=== PATIENT | male | born 1985 | race Two or more races ===

== ENCOUNTER 2021-05-21 10:43 | Emergency (ER) | payer SELFPAY ==
[~2021-05-21] VITALS: Ht 162.6 cm; Wt 85.8 kg
[2021-05-21] MEDS ORDERED: IBUPROFEN 200 MG TABLET. PO ONE (11:30)
[2021-05-21] MEDS ORDERED: ACETAMINOPHEN 325 MG TABLET. PO ONE (11:30)
--- NOTE | 2021-05-21 11:46 | RAD ---
INDICATION: Reason: Cough, congestion, fever / Spl. Instructions: / History: COMPARISON: None. FINDINGS: Single view of chest obtained. Hypoexpanded examination of the lungs. Prominent cardiac silhouette. Be exaggerated by portable technique. Patchy opacities within the bilateral lungs. IMPRESSION: * Patchy opacities in the bilateral lungs. Could be infectious in nature from bilateral pneumonia co rrelate with symptoms. Both viral and bacterial etiology could have this appearance. Follow-up could be obtained to ensure this appropriately resolves. Electronically signed by: Bc Bang MD (05/21/2021 11:44 AM) [id number]
--- NOTE | 2021-05-21 11:58 | PHYS DOC ---
Past Medical History Past Surgical History: No Surgical History Smoking Status: Never Smoker Alcohol Use: None General Adult EDM: Chief Complaint: SHORTNESS OF BREATH HPI: HPI: Patient is a 36-year-old male presents to the emergency department complaining of chest congestion and cough for the past 4 days. Patient reports this is a dry cough without production of sputum. Complains of mild shortness of breath during coughing spells however denies shortness of breath otherwise. Patient reports fevers and chills at home however denies taking his temperature at home. Denies chest pain or discomfort, denies receiving the COVID-19 vaccine. Denies other physical complaints or physical concerns. Review of Systems: Review of Systems: 14 body systems of review of systems have been reviewed. See HPI for pertinent positives and negative responses, otherwise all other systems are negative, nonpertinent or noncontributory. Constitutional: Negative except as outlined in HPI above. Skin: Negative except as outlined in HPI above. Eyes: Negative except as outlined in HPI above. HENT: Negative except as outlined in HPI above. Respiratory: Negative except as outlined in HPI above. Cardiovascular: Negative except as outlined in HPI above. GI: Negative except as outlined in HPI above. : Negative except as outlined in HPI above. Musculoskeletal: Negative except as outlined in HPI above. Integument: Negative except as outlined in HPI above. Neurologic: Negative except as outlined in HPI above. Endocrine: Negative except as outlined in HPI above. Lymphatic: Negative except as outlined in HPI above. Psychiatric: Negative except as outlined in HPI above. Heart Score: C/O Chest Pain: No Risk Factors: Risk Factors: DM, Current or recent (<one month) smoker, HTN, HLP, family history of CAD, obesity. Risk Scores: Score 0 - 3: 2.5% MACE over next 6 weeks - Discharge Home Score 4 - 6: 20.3% MACE over next 6 weeks - Admit for Clinical Observation Score 7 - 10: 72.7% MACE over next 6 weeks - Early Invasive Strategies Current Medications: Current Medications Medications (Trade) Dose Ordered Sig/April Start Time Stop Time Status Last Admin Dose Admin Acetaminophen (Tylenol) 650 mg 1X ONCE 05/21/21 11:30 05/21/21 11:31 DC 05/21/21 11:45 650 MG Ibuprofen (Motrin) 600 mg 1X ONCE 05/21/21 11:30 05/21/21 11:31 DC 05/21/21 11:30 600 MG Allergies: Allergies: Allergies Coded Allergies Type Severity Reaction Last Updated Verified No Known Drug Allergies 05/21/21 No Physical Exam: PE: Constitutional: Well developed, well nourished, no acute distress, non-toxic appearance. 36-year-old male in no apparent distress. HENT: Normocephalic, atraumatic. Oropharynx pink, moist, no deep tissue infectious process appreciated, no drooling, no trismus, no lymphadenopathy of the head or neck appreciated, bilateral TMs intact clear within normal limits. Eyes: Conjunctiva normal, no discharge. Neck: Normal range of motion, no stridor. No nuchal rigidity, no meningismus signs. Cardiovascular: No cyanosis appreciated, distal cap refill less than 2 seconds. Lungs & Thorax: Patient is in no respiratory distress, no audible adventitious lung sounds appreciated. No adventitious lung sounds appreciated per auscultation all lung garcia. Abdomen: Nontender, no abnormalities noted. Skin: Warm, dry, no erythema, no rash. Back: No tenderness, no deformities. Extremities: No tenderness, no cyanosis, no clubbing, ROM intact, no edema. Neurologic: Alert and oriented X 3, normal motor function, normal sensory function, no focal deficits noted. Psychologic: Affect normal, judgement normal, mood normal. Current Patient Data: Vital Signs: Vital Signs Date Time Temp Pulse Resp B/P (MAP) Pulse Ox O2 Delivery O2 Flow Rate FiO2 05/21/21 10:58 98.6 88 20 143/96 (112) 97 Room Air 98.6 EKG: EKG: [] Radiology/Procedures: Radiology/Procedures: PATIENT: ERENDIRA FREEDCOUNT: [id number] : 1985 LOCATION: ER AGE: 36 SEX: M EXAM STATUS: REG ER ORD. PHYSICIAN: BERTHA PERALTA APRN REASON: Cough, congestion, fever PROCEDURE: CHEST AP ONLY INDICATION: Reason: Cough, congestion, fever / Spl. Instructions: / History: COMPARISON: None. FINDINGS: Single view of chest obtained. Hypoexpanded examination of the lungs. Prominent cardiac silhouette. Be exaggerated by portable technique. Patchy opacities within the bilateral lungs. IMPRESSION: * Patchy opacities in the bilateral lungs. Could be infectious in nature from bilateral pneumonia correlate with symptoms. Both viral and bacterial etiology could have this appearance. Follow-up could be obtained to ensure this appropriately resolves. Electronically signed by: Magalys Metz MD (05/21/2021 11:44 AM) DESKTOP- [id number] DICTATED and SIGNED BY: MAGALYS METZ MD DATE: 05/21/21 [id number] Course & Med Decision Making: Course & Med Decision Making Pertinent Labs and Imaging studies reviewed. (See chart for details) 36-year-old male, vital signs reviewed, presents emergency department concerning cough and congestion for the past 4 days with reported fever at home. Patient is afebrile here in the emergency department today, physical examination unremarkable however with reported history will order chest x-ray, Covid testing, rapid flu testing, CBC, CMP. Patient's rapid Covid test positive, chest x-ray indicative of atypical Covid pneumonia, Rapid flu testing pending. Rapid flu negative. Discussed findings with patient, will cover atypical pneumonia with community-acquired pneumonia outpatient treatment prescriptions for azithromycin, doxycycline, patient is not hypoxic, no respiratory distress, vital signs within normal limits and is hemodynamically stable. Discussed COVID-19 virus quarantine, will attach information to discharge instructions, patient is amenable to and gave verbal understanding of discharge instructions. Discussed with the patient all findings and diagnostic testing as well as the need to follow-up with their primary care provider for further evaluation and treatment or return to the ED if any new or worsening symptoms. Strict return precautions were also discussed at length, the patient voiced understanding and agreement with the discharge planning. The patient was nontoxic in appearance, in no apparent distress, and hemodynamically stable at the time of disposition. Dragon Disclaimer: Highlighter Disclaimer: This electronic medical record was generated, in whole or in part, using a voice recognition dictation system. Departure Departure Impression: Primary Impression: COVID-19 virus infection Additional Impressions: Atypical pneumonia Community acquired pneumonia Qualified Codes: J18.9 - Pneumonia, unspecified organism Disposition: HOME / SELF CARE / HOMELESS Condition: GOOD Referrals: NO PCP (PCP) Patient Instructions: Pneumonia, Adult Additional Instructions: You were seen today in the emergency department for chest congestion and cough. Your chest x-ray and lab work indicate that you have been infected with the COVID-19 virus and have a COVID-19 pneumonia. I am starting you on an antibiotic to cover any atypical pneumonia component. Please take as directed until completed. I have attached COVID-19 virus instructions to this document please review. Please continue to wear a mask to help prevent the spread of this virus. You may take [id number] Tylenol and or Motrin for fever along with aches and pains. Return to the emergency department for worsening symptoms or other concerns. Thank you for visiting our Emergency Department. It was a pleasure taking care of you today in the emergency department and we appreciate you trusting us with your care. If any additional problems come up don't hesitate to return to visit us. Please follow up with your primary care provider so they can plan additional care if needed and know about the problem that you had. If symptoms worsen come back to the Emergency Department. Any concerning symptoms that start such as chest pain, shortness of air, weakness or numbness on one side of the body, running high fevers or any other concerning symptoms return to the ER. Hoy lo vieron en el departamento de emergencias por congestin en el pecho y tos. Espinoza radiografa de trax y anlisis de laboratorio indican que whittaker sido infectado con el virus COVID-19 y tiene josie neumona COVID-19. Le estoy comenzando a amelia un antibitico para cubrir cualquier componente de neumona atpica. Tmelo rick se indica hasta completarlo. He adjuntado instrucciones sobre el virus COVID-19 a christopher documento, revselo. Contine usando josie mscara para ayudar a prevenir la propagacin de christopher virus. Puede amelia Tylenol o Motrin de venta artis para la fiebre junto con los rajiv y molestias. Regrese al departamento de emergencias si los sntomas empeoran u otras inquietudes. Reji por visitar nuestro Departamento de Emergencias. Fue un placer atenderlo hoy en el departamento de emergencias y le agradecemos que nos haya confiado epsinoza atencin. Si surge algn problema adicional, no dude en volver a visitarnos. Irene un seguimiento con espinoza proveedor de atencin primaria para que puedan planificar atencin adicional si es necesario y conocer el problema que tuvo. Si los sntomas empeoran, regrese al Departamento de Emergencias. Cualquier sntoma preocupante que comience, rick dolor en el pecho, falta de aire, debilidad o entumecimiento en un lado del cuerpo, fiebre meghan o cualquier otro sntoma preocupante, regresa a la beulah de emergencias. More about You were seen today in the emergency department for chest congestion and cough. Your chest x-ray and lab work indicate that you have been infected with the COVID-19 virus and have a COVID-19 pneumonia. I am starting you on an antibiotic to cover any atypical pneumonia component. Please take as directed until completed. I have attached COVID-19 virus instructions to this document please review. Please continue to wear a mask to help prevent the spread of this virus. You may take [id number] Tylenol and or Motrin for fever along with aches and pains. Return to the emergency department for worsening symptoms or other concerns. Thank you for visiting our Emergency Department. It was a pleasure taking care of you today in the emergency department and we appreciate you trusting us with your care. If any additional problems come up don't hesitate to return to visit us. Please follow up with your primary care provider so they can plan additional care if needed and know about the problem that you had. If symptoms worsen come back to the Emergency Department. Any concerning symptoms that start such as chest pain, shortness of air, weakness or numbness on one side of the body, running high fevers or any other concerning symptoms return to the ER. Coronavirus disease (COVID-19) Get the latest information Definicin Se le realiz la prueba de deteccin del COVID-19 o se le diagnostic dicha enfermedad. Es josie infeccin ocasionada por un nuevo tipo de coronavirus. En la mayora de los casos, el COVID-19 provoca sntomas similares a los del resfriado. En algunas personas, puede ocasionar sntomas ms graves, rick problemas respiratorios. No existe un tratamiento para el virus COVID-19. El cuerpo elimina la infeccin con el tiempo. El cuidado personal ayuda a aliviar el malestar. Pasos que debe seguir 1. Cuidados personales Descanse cuando sea necesario. Los hbitos saludables pueden ayudarlo a sentirse mejor. Algunas medidas para lograr cambios incluyen lo siguiente: - Elija alimentos saludables, rick frutas y verduras. Lupe abundante cantidad de agua janee todo el da. - Duerma miguel por la noche. - Si fuma, intente no hacerlo. Spurgeon ayudar a mejorar la respiracin. - Evite el alcohol. 2. Mantenga sanos a los dems El virus puede contagiarse a otras personas. Cada vez que estornuda o tose, se liberan gotitas. Las gotitas pueden entrar en la boca, la nariz o los ojos de las personas que se encuentran cerca de usted y ocasionar la infeccin. Para reducir las probabilidades de contagiar el virus COVID-19 a otros, tenga en cuenta lo siguiente: - Qudese en casa el tiempo que el mdico se lo indique. Es posible que deba quedarse en casa hasta que la enfermedad desaparezca. Salga nicamente para recibir atencin mdica o en lino de urgencia. - Evite las reas pblicas, los eventos o el transporte pblico. No reanude las actividades laborales o escolares hasta que el mdico lo autorice. - Llame previamente si necesita asistir a un centro mdico. Avise que es posible que haya contrado COVID-19. Spurgeon ayudar a que le indiquen adonde debe dirigirse. Catherine pueden pedirle que use josie mscara facial cuando vaya al consultorio. Si llama a los servicios de asistencia mdica de urgencias, avseles que es posible que haya contrado COVID-19. Mientras est en casa: - Evite el contacto directo con otras personas. Mantngase a josie distancia aproximada de 2 metros. Si es posible, pasen la mayor parte del tiempo en olivier separadas. - Use josie mscara facial si estar en contacto directo con otras personas, por ejemplo, si compartir josie habitacin o un vehculo. - Pida a alguien que limpie las superficies comunes de la casa. Limpie picaportes, mesadas y lavamanos con limpiadores domsticos todos los resendiz. - Al toser o estornudar, cbrase con un pauelo de papel. Despus de usarlo, deschelo de inmediato. Si no tiene un pauelo de papel, tosa o estornude en el pliegue del codo. - Lvese las breanna con frecuencia. Lvese las breanna despus de estornudar o toser. Lvese con agua y jabn janee, al menos, 20 segundos. Si no dispone de agua y jabn, use un limpiador de breanna a base de alcohol. - No cocine para otros. Evite compartir objetos personales, rick tenedores, cucharas o cepillos de dientes. - Mientras est enfermo, evite el contacto directo con las mascotas. No hay indicios de si el virus se transmite a las mascotas. Esta es josie medida de seguridad que debe tenerse en cuenta hasta que se sepa ms acerca de christopher virus. El aislamiento puede ser frustrante. La interaccin social puede ayudar. Mantngase en contacto con amigos y familiares por telfono u otros medios tecnolgicos. Puede interactuar con otras personas en el [facility], los mantenga josie distancia haas de aproximadamente 2 metros. Seguimiento Las pruebas para confirmar la presencia del COVID-19 pueden demorar algunos resendiz. Es posible que deba seguir los pasos mencionados anteriormente hasta que estn los resultados de las pruebas. Lo llamarn del consultorio mdico para saber si whittaker habido algn cambio en espinoza jorge. Tambin le avisarn cuando pueda volver a estar cerca de otras personas. Problemas a los que debe estar atento Comunquese con el mdico si no se recupera segn lo previsto o si tiene problemas rick los siguientes: - Dificultad para respirar - Dolor de pecho - Empeoramiento de los sntomas Si killian que tiene josie urgencia, llame a los servicios de asistencia mdica de urgencias de inmediato. As taken from [facility] Ibuprofen (IBUPROFEN) 600 Mg Tablet 600 MG PO PRN Q6HRS PRN for INFLAMMATION, #30 TAB 0 Refills Prov: BERTHA PERALTA SEXUAL ASSAULT NURSE 05/21/21 Doxycycline Hyclate (DOXYCYCLINE HYCLATE) 100 Mg Capsule 1 CAP PO BID for 5 Days, #10 CAP 0 Refills Prov: BERTHA PERALTA SEXUAL ASSAULT NURSE 05/21/21 Azithromycin (AZITHROMYCIN TABLET) 250 Mg Tablet 1 PKG PO UD for atypical pneumonia for 5 Days, #6 TAB 0 Refills 2 the first day followed by 1 for days 2-5 Prov: BERTHA PERALTA SEXUAL ASSAULT NURSE 05/21/21 BERTHA PERALTA SEXUAL ASSAULT NURSE May 21, 2021 11:58
[2021-05-21 12:13] LABS: BASO % 1 % (0-3); EOS % 0 % (0-3); HEMATOCRIT 42.9 % (39.0-53.0); HEMOGLOBIN 14.9 g/dL (13.0-17.5); LYMPH # 0.8 x10^3/uL (1.0-4.8); LYMPH % 22 % (24-48); MEAN CORPUSCULAR HEMOGLOBIN 31 pg (25-35); MEAN CORPUSCULAR HGB CONC 35 g/dL (31-37); MEAN CORPUSCULAR VOLUME 88 fL (79-100); MONO # 0.4 x10^3/uL (0.0-1.1); MONO % 9 % (0-9); NEUT # 2.5 x10^3/uL (1.8-7.7); NEUT % 68 % (31-73); PLATELET COUNT 103 x10^3/uL (140-400); RED BLOOD COUNT 4.86 x10^6/uL (4.30-5.70); RED CELL DISTRIBUTION WIDTH 12.3 % (11.5-14.5); WHITE BLOOD COUNT 3.7 x10^3/uL (4.0-11.0)
[2021-05-21 12:23] LABS: CALCIUM 8.2 mg/dL (8.5-10.1); CREATININE 0.9 mg/dL (0.7-1.3); POTASSIUM 3.2 mmol/L (3.5-5.1)
[2021-05-21 12:30] LABS: ALBUMIN 3.3 g/dL (3.4-5.0); ALBUMIN/GLOBULIN RATIO 0.6 (1.0-1.7); TOTAL BILIRUBIN 0.4 mg/dL (0.2-1.0); TOTAL PROTEIN 8.4 g/dL (6.4-8.2)
[2021-05-21 13:48] LABS: INFLUENZA A PATIENT NEGATIVE (NEGATIVE); INFLUENZA B PATIENT NEGATIVE (NEGATIVE)
[2021-05-21] MEDS ORDERED: IBUP-1007 PO (14:36)
[2021-05-21] MEDS ORDERED: DOXY100C3 PO (14:36)
[2021-05-21] MEDS ORDERED: AZIT250T6 PO (14:36)
[2021-05-21 15:25] VITALS: BP 117/76
--- NOTE | 2021-05-21 20:20 | EKG ---
[facility] [address] [place] [address] Test Date: 2021-05-21 Test Time: 10:58:46 Pat Name: WES FREED Department: Room: Gender: M Furniture Lumber Production Worker: : 1985 Requested By: BERTHA PERALTA Order Number: [id number] Reading MD: Donn Unger Measurements Intervals [place] Rate: 90 P: 39 MN: 130 QRS: -21 QRSD: 88 T: 48 QT: 352 QTc: 435 Interpretive Statements SINUS RHYTHM LEFT ATRIAL ABNORMALITY LEFTWARD AXIS ABNORMAL ECG RI6.02 No previous ECG available for comparison Electronically Signed On 05-22-2021 9:04:42 REAGENT TENDER HELPER by Donn Unger
== END 2021-05-21 15:42 | disposition home or self-care (01) ==
LOC: ER 10:43
DX: U07.1 COVID-19 (principal); J18.9 Pneumonia, unspecified organism
CPT/HCPCS: 36415; 71045; 80053; 85025; 87426; 87804; 93005; 99285-25